=== PATIENT | female | born 1935 | race Two or more races ===

== ENCOUNTER 2021-06-15 09:11 | Inpatient (IN) | payer MEDICARE, OTHER ==
[~2021-06-15] VITALS: Ht 160 cm; Wt 88.6 kg
[2021-06-15] MEDS ORDERED: SODIUM CHLORIDE 0.9% 1,000 ML IVB ONE (10:00)
[2021-06-15] MEDS ORDERED: cefTRIAXone 1GM/50ML D5W 50 ML IV ONE (10:00)
[2021-06-15] MEDS ORDERED: ASPirin 81 mg TAB PO ONE (10:00)
[2021-06-15] MEDS ORDERED: DexAMETHasone SOD PHOS 10MG/1ML VIAL INJ IV ONE (10:00)
[2021-06-15] MEDS ORDERED: AZITHROMYCIN 500MG/ 250ML 250 ML IV ONE (10:00)
[2021-06-15] MEDS ORDERED: SODIUM CHLORIDE 0.9% 1,000 ML IV ONE (10:00)
[2021-06-15 11:18] LABS: Albumin 2.6 g/dL (3.4-5.0); Calcium 8.2 mg/dL (8.5-10.1); Lactic Acid w/Reflex 3.1 mmol/L (0.4-2.0); Magnesium 2.7 mg/dL (1.6-2.6); Potassium 5.1 mmol/L (3.5-5.1)
[2021-06-15 11:19] LABS: BUN/Creatinine Ratio 21.3; Bilirubin, Total 0.7 mg/dL (0.2-1.0); Total Protein 6.1 g/dL (6.4-8.2)
[2021-06-15] MEDS ORDERED: IPRATROPIUM BROM 0.5 MG/2.5ML INH SOL NEB ONE (11:45)
[2021-06-15] MEDS ORDERED: ALBUTEROL SULF 2.5 MG/0.5ML(0.5%) NEB SOLN NEB ONE (11:45)
[2021-06-15] MEDS ORDERED: FUROSEMIDE 40 MG/4 ML VIAL IV ONE (12:00)
[2021-06-15 12:15] LABS: Hematocrit 40.2 % (36.0-46.0); Hemoglobin 12.7 g/dL (12.2-16.2); Mean Corpuscular Hemoglobin 29.3 pg (28.0-32.0); Mean Corpuscular Hgb Conc. 31.6 g/dL (32.0-36.0); Mean Corpuscular Volume 92.8 fL (80.0-100.0); Red Blood Cells 4.34 10^6/uL (4.0-5.20); Red Cell Distribution Width 15.5 % (11.8-14.3); White Blood Cell 6.9 10^3/uL (4.4-10.8)
[2021-06-15 12:26] LABS: Urine Bacteria MANY /hpf (None Seen); Urine Blood TRACE /uL (Negative); Urine Hyaline Cast MANY /lpf (0 - 2); Urine Mucus FEW (None Seen); Urine Specific Gravity 1.022 (1.001-1.035); Urine WBC 201 /hpf (0 - 5)
[2021-06-15 12:27] LABS: Basophils % (manual) 0 (0.0-2.0); Blast Cells 0; Eosinophils % (manual) 0 (0-7); Metamyelocytes % 0; Myelocytes % 0; Promyelocytes % 0; Reactive Lymphocytes 0
[2021-06-15 12:28] LABS: INR 1.01 (0.9-1.15); Partial Thromboplastin Time 28.4 sec (23.6-33.0)
[2021-06-15 12:47] LABS: Band Neutrophils % (manual) 8; Lymphocytes % (manual) 22 (10.0-50.0); Monocytes % (manual) 12 (0-12)
[2021-06-15] MEDS ORDERED: SODIUM BICARBONATE 50ML VIAL 50 ML in SOD CHL 0.45% 1,000 ML IV ONE (13:30)
[2021-06-15] MEDS ORDERED: MORPHINE SULFATE INJECTION 2 MG/ML SYRG IV PRN (13:30)
[2021-06-15] MEDS ORDERED: REMDESIVIR PER PHARMACY 0 ML IV SCH (13:30)
[2021-06-15] MEDS ORDERED: NITROGLYCERIN 0.4 MG SL TAB SL PRN (13:30)
[2021-06-15] MEDS ORDERED: ACETAMINOPHEN 500 MG TAB PO PRN (13:30)
[2021-06-15 13:50] VITALS: BP 135/64
[2021-06-15] MEDS ORDERED: ENOXAPARIN SOD 40 MG/0.4 ML SYRINGE SC SCH (14:00)
[2021-06-15 16:49] LABS: Cholesterol 139 mg/dL (< 200); Triglycerides 151 mg/dL (< 150)
[2021-06-15 16:52] LABS: HDL Cholesterol 37 mg/dL (40-59); LDL Cholesterol 89 mg/dL (< 100)
[2021-06-15] MEDS: BUDESONIDE (INHALATION) 180 MCG IH IN SCH (18:52)
[2021-06-15] MEDS: ALBUTEROL SULF HFA 90MCG INH 200DOSE IN PRN (18:52)
[2021-06-15] MEDS ORDERED: ENOXAPARIN SOD 60 MG/0.6 ML SYRINGE SC SCH (22:00)
[2021-06-16] VITALS (13 sets, daily range): BP systolic 111–172; BP diastolic 41–92
[2021-06-16] MEDS ORDERED: hydrALAZINE HCL 20 MG/ML VL IV ONE (03:30)
[2021-06-16] MEDS: BUDESONIDE (INHALATION) 180 MCG IH IN SCH ×2 (06:26→19:30)
[2021-06-16] MEDS: ALBUTEROL SULF HFA 90MCG INH 200DOSE IN PRN ×2 (06:26→19:30)
[2021-06-16 07:25] LABS: Hemoglobin 13.5 g/dL (12.2-16.2); Mean Corpuscular Hgb Conc. 32.1 g/dL (32.0-36.0); Mean Corpuscular Volume 90.5 fL (80.0-100.0); Red Blood Cells 4.65 10^6/uL (4.0-5.20); Red Cell Distribution Width 14.9 % (11.8-14.3); White Blood Cell 8.4 10^3/uL (4.4-10.8)
[2021-06-16 07:27] LABS: Basophils % (manual) 0 (0.0-2.0); Blast Cells 0; Eosinophils % (manual) 0 (0-7); Metamyelocytes % 0; Promyelocytes % 0; Reactive Lymphocytes 0
[2021-06-16 07:30] LABS: Alanine Aminotransferase 44 U/L (13-56); Albumin 2.4 g/dL (3.4-5.0); Anion Gap 11 (5-15); Aspartate Aminotransferase 114 U/L (15-37); BUN/Creatinine Ratio 36.2; Blood Urea Nitrogen 38 mg/dL (7-18); Calcium 8.2 mg/dL (8.5-10.1); Carbon Dioxide 15 mmol/L (21-32); Chloride 117 mmol/L (98-107); GFR African American 64 mL/min; GFR Non-African American 53 mL/min; Glucose 136 mg/dL (74-106); Potassium 4.5 mmol/L (3.5-5.1); Sodium 143 mmol/L (136-145)
[2021-06-16 07:33] LABS: Alkaline Phosphatase 248 U/L (45-117); Bilirubin, Total 0.5 mg/dL (0.2-1.0); Total Protein 6.2 g/dL (6.4-8.2)
[2021-06-16 07:46] LABS: Band Neutrophils % (manual) 25; Lymphocytes % (manual) 9 (10.0-50.0); Monocytes % (manual) 4 (0-12); Myelocytes % 1
[2021-06-16] MEDS: DexAMETHasone SOD PHOS 10MG/1ML VIAL INJ IV SCH (10:00)
[2021-06-16] MEDS: ASCORBIC ACID 1,000 MG TAB PO SCH (10:00)
[2021-06-16] MEDS: ASPirin 81 mg TAB PO SCH (10:00)
[2021-06-16] MEDS: AZITHROMYCIN 500MG/ 250ML 250 ML IV SCH (10:20)
[2021-06-16] MEDS: ZINC SULFATE 220mg CAP or TAB PO SCH (10:33)
[2021-06-16] MEDS: CHOLECALCIFEROL (VITD3) 2,000 UNIT CAP/TAB PO SCH (10:33)
[2021-06-16] MEDS ORDERED: REMDESIVIR PER PHARMACY 0 ML IV SCH (11:00)
[2021-06-16] MEDS ORDERED: AZIT250T9 PO (12:15)
[2021-06-16] MEDS ORDERED: HYDR-4833 PO (12:15)
[2021-06-16] MEDS ORDERED: RAMI5CAP40 PO (12:15)
[2021-06-16] MEDS ORDERED: OXYB5TAB61 PO (12:15)
[2021-06-16] MEDS ORDERED: LEVO88TA2 PO (12:15)
[2021-06-16] MEDS ORDERED: HYDR12.55 PO (12:15)
[2021-06-16] MEDS ORDERED: DICL1GEL86 EX (12:15)
[2021-06-16] MEDS ORDERED: CEL100T PO (12:15)
[2021-06-16] MEDS ORDERED: REMDESIVIR 200 MG in NS 210ml LOADING DOSE ADULT IV ONE (12:30)
[2021-06-16] MEDS ORDERED: guaiFENesin-DM 100/10mg/5ml SYR PO PRN (17:00)
[2021-06-16] MEDS ORDERED: cefTRIAXone 1GM/50ML D5W 50 ML IV ONE (17:00)
[2021-06-16] MEDS ORDERED: ASCO500C49 PO (19:43)
[2021-06-16] MEDS ORDERED: ACET-1156 PO (19:43)
[2021-06-16] MEDS ORDERED: HYDR-4072 PO (19:43)
[2021-06-16] MEDS ORDERED: ZINC220C8 PO (19:43)
[2021-06-16] MEDS ORDERED: CHOLPOW45 XX (19:43)
[2021-06-16] MEDS: ENOXAPARIN SOD 40 MG/0.4 ML SYRINGE SC SCH (22:27)
[2021-06-16] MEDS: ATORVASTATIN 20 MG TAB PO SCH (22:28)
[2021-06-16] MEDS ORDERED: hydrALAZINE HCL 20 MG/ML VL IV PRN (23:00)
[2021-06-17] VITALS (88 sets, daily range): BP systolic 95–162; BP diastolic 22–102
[2021-06-17 05:04] LABS: Hematocrit 39.3 % (36.0-46.0); Hemoglobin 12.9 g/dL (12.2-16.2); Mean Corpuscular Hemoglobin 28.8 pg (28.0-32.0); Mean Corpuscular Hgb Conc. 32.8 g/dL (32.0-36.0); Mean Corpuscular Volume 87.5 fL (80.0-100.0); Red Blood Cells 4.49 10^6/uL (4.0-5.20); Red Cell Distribution Width 14.9 % (11.8-14.3); White Blood Cell 8.1 10^3/uL (4.4-10.8)
[2021-06-17 05:31] LABS: Albumin 2.5 g/dL (3.4-5.0); Calcium 8.3 mg/dL (8.5-10.1); Potassium 4.2 mmol/L (3.5-5.1)
[2021-06-17 05:33] LABS: BUN/Creatinine Ratio 42.5; Basophils % (manual) 0 (0.0-2.0); Blast Cells 0; Eosinophils % (manual) 0 (0-7); Metamyelocytes % 0; Promyelocytes % 0; Reactive Lymphocytes 0
[2021-06-17 05:38] LABS: Bilirubin, Total 0.7 mg/dL (0.2-1.0); Total Protein 6.1 g/dL (6.4-8.2)
[2021-06-17] MEDS: BUDESONIDE (INHALATION) 180 MCG IH IN SCH ×2 (06:40→10:00)
[2021-06-17 06:50] LABS: Band Neutrophils % (manual) 26; Lymphocytes % (manual) 6 (10.0-50.0); Monocytes % (manual) 10 (0-12); Myelocytes % 5
[2021-06-17] MEDS ORDERED: LORazepam 2MG/ML-1ML VIAL IV ONE (08:15)
[2021-06-17] MEDS: cefTRIAXone 1GM/50ML D5W 50 ML IV SCH (09:11)
[2021-06-17] MEDS: CHOLECALCIFEROL (VITD3) 2,000 UNIT CAP/TAB PO SCH (10:00)
[2021-06-17] MEDS: ASPirin 81 mg TAB PO SCH (10:00)
[2021-06-17] MEDS: DexAMETHasone SOD PHOS 10MG/1ML VIAL INJ IV SCH (10:00)
[2021-06-17] MEDS: ASCORBIC ACID 1,000 MG TAB PO SCH (10:00)
[2021-06-17] MEDS: ZINC SULFATE 220mg CAP or TAB PO SCH (10:00)
[2021-06-17] MEDS: AZITHROMYCIN 500MG/ 250ML 250 ML IV SCH (10:00)
[2021-06-17] MEDS: FAMOTIDINE 20 MG TAB PO SCH (10:00)
[2021-06-17] MEDS ORDERED: ROCURONIUM 10MG/ML 10ML VIAL IV ONE ×2 (11:13→11:15)
[2021-06-17] MEDS ORDERED: ETOMIDATE (2MG/ML) 20ML VIAL IV ONE ×2 (11:13→11:30)
[2021-06-17 11:14] LABS: INR 1.06 (0.9-1.15); Partial Thromboplastin Time 21.2 sec (23.6-33.0)
[2021-06-17] MEDS ORDERED: MIDAZOLAM DRIP 50 mg/50mL 50 ML IV ONE ×2 (11:28→12:34)
[2021-06-17] MEDS ORDERED: PROPOFOL 100 ML IV ONE (11:28)
[2021-06-17] MEDS: fentaNYL Drip 2500mCg/250mlNS 250 ML IV SCH (12:30)
[2021-06-17] MEDS: PROPOFOL 100 ML IV SCH ×2 (13:45→19:47)
[2021-06-17] MEDS: REMDESIVIR 100mg 100 MG in SODIUM CHL 0.9% 230 ML IV SCH (15:00)
[2021-06-17] MEDS: MIDAZOLAM DRIP 50 mg/50mL 50 ML IV SCH ×3 (17:15→23:30)
[2021-06-17] MEDS: NOREPINEPHRINE 8 MG/250ML KIT 250 ML IV SCH (17:49)
[2021-06-17] MEDS: FREE WATER GT SCH ×2 (17:50→22:00)
[2021-06-17] MEDS: ENOXAPARIN SOD 40 MG/0.4 ML SYRINGE SC SCH (23:27)
[2021-06-17] MEDS: ATORVASTATIN 20 MG TAB PO SCH (23:27)
[2021-06-18] VITALS (101 sets, daily range): BP systolic 86–165; BP diastolic 23–44
[2021-06-18] MEDS: FREE WATER GT SCH ×6 (02:00→22:00)
[2021-06-18] MEDS: MIDAZOLAM DRIP 50 mg/50mL 50 ML IV SCH ×3 (03:00→23:33)
[2021-06-18 06:58] LABS: Hematocrit 32.6 % (36.0-46.0); Hemoglobin 11.1 g/dL (12.2-16.2); Mean Corpuscular Hemoglobin 29.9 pg (28.0-32.0); Mean Corpuscular Hgb Conc. 34.1 g/dL (32.0-36.0); Mean Corpuscular Volume 87.6 fL (80.0-100.0); Red Blood Cells 3.73 10^6/uL (4.0-5.20); Red Cell Distribution Width 14.6 % (11.8-14.3); White Blood Cell 4.9 10^3/uL (4.4-10.8)
[2021-06-18 07:13] LABS: Albumin 2.1 g/dL (3.4-5.0); Calcium 7.6 mg/dL (8.5-10.1); Potassium 3.9 mmol/L (3.5-5.1)
[2021-06-18 07:19] LABS: BUN/Creatinine Ratio 48.4; Bilirubin, Total 0.5 mg/dL (0.2-1.0)
[2021-06-18 07:26] LABS: Basophils % (manual) 0 (0.0-2.0); Blast Cells 0; Eosinophils % (manual) 0 (0-7); Metamyelocytes % 0; Myelocytes % 0; Promyelocytes % 0; Reactive Lymphocytes 0
[2021-06-18] MEDS: cefTRIAXone 1GM/50ML D5W 50 ML IV SCH (08:53)
[2021-06-18 09:17] LABS: Band Neutrophils % (manual) 9; Lymphocytes % (manual) 5 (10.0-50.0); Monocytes % (manual) 4 (0-12)
[2021-06-18] MEDS: DexAMETHasone SOD PHOS 10MG/1ML VIAL INJ IV SCH (10:00)
[2021-06-18] MEDS: AZITHROMYCIN 500MG/ 250ML 250 ML IV SCH (10:00)
[2021-06-18] MEDS: ASPirin 81 mg TAB PO SCH (10:00)
[2021-06-18] MEDS: FAMOTIDINE 20 MG TAB PO SCH (10:00)
[2021-06-18] MEDS: ASCORBIC ACID 1,000 MG TAB PO SCH (10:00)
[2021-06-18] MEDS: ZINC SULFATE 220mg CAP or TAB PO SCH (10:00)
[2021-06-18] MEDS: CHOLECALCIFEROL (VITD3) 2,000 UNIT CAP/TAB PO SCH (10:00)
[2021-06-18] MEDS: fentaNYL Drip 2500mCg/250mlNS 250 ML IV SCH (12:30)
[2021-06-18] MEDS ORDERED: FUROSEMIDE 20 MG/2 ML VIAL IV ONE (12:30)
[2021-06-18] MEDS: REMDESIVIR 100mg 100 MG in SODIUM CHL 0.9% 230 ML IV SCH (15:00)
[2021-06-18] MEDS: NOREPINEPHRINE 8 MG/250ML KIT 250 ML IV SCH (16:45)
[2021-06-18] MEDS: PROPOFOL 100 ML IV SCH (19:00)
[2021-06-18] MEDS: Jevity 1.2 Cal/Fiber 1 Liter GT SCH (20:00)
[2021-06-18] MEDS: ENOXAPARIN SOD 40 MG/0.4 ML SYRINGE SC SCH (22:00)
[2021-06-18] MEDS: ATORVASTATIN 20 MG TAB PO SCH (23:02)
[2021-06-19] VITALS (98 sets, daily range): BP systolic 103–152; BP diastolic 24–60
[2021-06-19] MEDS: NOREPINEPHRINE 8 MG/250ML KIT 250 ML IV SCH (01:00)
[2021-06-19] MEDS: FREE WATER GT SCH ×6 (02:19→22:00)
[2021-06-19] MEDS: PROPOFOL 100 ML IV SCH ×3 (04:00→20:00)
[2021-06-19] MEDS: MIDAZOLAM DRIP 50 mg/50mL 50 ML IV SCH ×4 (04:00→22:00)
[2021-06-19 05:10] LABS: Hematocrit 34.6 % (36.0-46.0); Hemoglobin 11.3 g/dL (12.2-16.2); Mean Corpuscular Hemoglobin 28.5 pg (28.0-32.0); Mean Corpuscular Hgb Conc. 32.6 g/dL (32.0-36.0); Mean Corpuscular Volume 87.5 fL (80.0-100.0); Red Blood Cells 3.96 10^6/uL (4.0-5.20); Red Cell Distribution Width 14.9 % (11.8-14.3); White Blood Cell 12.5 10^3/uL (4.4-10.8)
[2021-06-19] MEDS: fentaNYL Drip 2500mCg/250mlNS 250 ML IV SCH (05:15)
[2021-06-19 05:17] LABS: Basophils % (manual) 0 (0.0-2.0); Blast Cells 0; Eosinophils % (manual) 0 (0-7); Metamyelocytes % 0; Myelocytes % 0; Promyelocytes % 0; Reactive Lymphocytes 0
[2021-06-19 05:34] LABS: Albumin 2.1 g/dL (3.4-5.0); BUN/Creatinine Ratio 37.3; Calcium 7.5 mg/dL (8.5-10.1); Magnesium 2.7 mg/dL (1.6-2.6)
[2021-06-19 05:39] LABS: Bilirubin, Total 0.6 mg/dL (0.2-1.0)
[2021-06-19 06:41] LABS: Band Neutrophils % (manual) 12; Lymphocytes % (manual) 2 (10.0-50.0); Monocytes % (manual) 1 (0-12)
[2021-06-19] MEDS: cefTRIAXone 1GM/50ML D5W 50 ML IV SCH (08:32)
[2021-06-19] MEDS ORDERED: SODIUM BICARBONATE 8.4 % INJ 50ML VIAL IV ONE ×2 (08:45)
[2021-06-19] MEDS: DexAMETHasone SOD PHOS 10MG/1ML VIAL INJ IV SCH (11:12)
[2021-06-19] MEDS: PANTOPRAZOLE 40 MG/10 ML VIAL INJ IV SCH (11:13)
[2021-06-19] MEDS: CHOLECALCIFEROL (VITD3) 2,000 UNIT CAP/TAB PO SCH (11:13)
[2021-06-19] MEDS: AZITHROMYCIN 500MG/ 250ML 250 ML IV SCH (11:13)
[2021-06-19] MEDS: ASPirin 81 mg TAB PO SCH (11:14)
[2021-06-19] MEDS: ZINC SULFATE 220mg CAP or TAB PO SCH (11:14)
[2021-06-19] MEDS: ASCORBIC ACID 1,000 MG TAB PO SCH (11:14)
[2021-06-19] MEDS ORDERED: SODIUM CHLORIDE 0.9% 500 ML IV ONE (13:15)
[2021-06-19] MEDS ORDERED: SODIUM CHLORIDE 0.9% 1,000 ML IV SCH (13:15)
[2021-06-19] MEDS: REMDESIVIR 100mg 100 MG in SODIUM CHL 0.9% 230 ML IV SCH (14:51)
[2021-06-19] MEDS ORDERED: FUROSEMIDE 20 MG/2 ML VIAL IV ONE (18:00)
[2021-06-19] MEDS: Jevity 1.2 Cal/Fiber 1 Liter GT SCH (20:00)
[2021-06-19] MEDS: ENOXAPARIN SOD 40 MG/0.4 ML SYRINGE SC SCH (22:00)
[2021-06-19] MEDS: ATORVASTATIN 20 MG TAB PO SCH (22:00)
[2021-06-20] VITALS (100 sets, daily range): BP systolic 89–153; BP diastolic 22–50
[2021-06-20] MEDS: NOREPINEPHRINE 8 MG/250ML KIT 250 ML IV SCH (01:00)
[2021-06-20] MEDS: MIDAZOLAM DRIP 50 mg/50mL 50 ML IV SCH ×3 (01:33→21:53)
[2021-06-20] MEDS: FREE WATER GT SCH ×6 (02:00→21:51)
[2021-06-20 06:42] LABS: Hematocrit 33.2 % (36.0-46.0); Hemoglobin 11.1 g/dL (12.2-16.2); Mean Corpuscular Hemoglobin 29.3 pg (28.0-32.0); Mean Corpuscular Hgb Conc. 33.3 g/dL (32.0-36.0); Mean Corpuscular Volume 87.8 fL (80.0-100.0); Red Blood Cells 3.78 10^6/uL (4.0-5.20); Red Cell Distribution Width 15.1 % (11.8-14.3); White Blood Cell 13.3 10^3/uL (4.4-10.8)
[2021-06-20 06:54] LABS: Band Neutrophils % (manual) 0; Basophils % (manual) 0 (0.0-2.0); Blast Cells 0; Eosinophils % (manual) 0 (0-7); Metamyelocytes % 0; Myelocytes % 0; Promyelocytes % 0; Reactive Lymphocytes 0
[2021-06-20 07:08] LABS: BUN/Creatinine Ratio 34.8; Calcium 6.9 mg/dL (8.5-10.1)
[2021-06-20 07:11] LABS: Bilirubin, Total 0.3 mg/dL (0.2-1.0); Total Protein 4.9 g/dL (6.4-8.2)
[2021-06-20] MEDS: PROPOFOL 100 ML IV SCH ×2 (08:02→21:52)
[2021-06-20 09:30] LABS: Lymphocytes % (manual) 4 (10.0-50.0); Monocytes % (manual) 13 (0-12)
[2021-06-20] MEDS: cefTRIAXone 1GM/50ML D5W 50 ML IV SCH (09:38)
[2021-06-20] MEDS: DexAMETHasone SOD PHOS 10MG/1ML VIAL INJ IV SCH (10:09)
[2021-06-20] MEDS: PANTOPRAZOLE 40 MG/10 ML VIAL INJ IV SCH (10:09)
[2021-06-20] MEDS: ZINC SULFATE 220mg CAP or TAB PO SCH (10:10)
[2021-06-20] MEDS: AZITHROMYCIN 500MG/ 250ML 250 ML IV SCH (10:10)
[2021-06-20] MEDS: CHOLECALCIFEROL (VITD3) 2,000 UNIT CAP/TAB PO SCH (10:10)
[2021-06-20] MEDS: ASCORBIC ACID 1,000 MG TAB PO SCH (10:10)
[2021-06-20] MEDS: ASPirin 81 mg TAB PO SCH (10:11)
[2021-06-20] MEDS: D5W 5% 1,000 ML IV ONE ×2 (12:30→14:32)
[2021-06-20] MEDS: fentaNYL Drip 2500mCg/250mlNS 250 ML IV SCH ×2 (12:30→21:52)
[2021-06-20] MEDS: InsuLIN REG 1unit/0.01ml Soln (100units/ml) SC SCH ×2 (14:00→18:30)
[2021-06-20] MEDS: REMDESIVIR 100mg 100 MG in SODIUM CHL 0.9% 230 ML IV SCH (16:30)
[2021-06-20] MEDS: ACCU-CHEK COMFORT CURVE STRIP VI SCH (18:14)
[2021-06-20] MEDS: ENOXAPARIN SOD 40 MG/0.4 ML SYRINGE SC SCH (21:51)
[2021-06-20] MEDS: ATORVASTATIN 20 MG TAB PO SCH (21:51)
[2021-06-21] VITALS (98 sets, daily range): BP systolic 87–140; BP diastolic 17–52
[2021-06-21] MEDS: ACCU-CHEK COMFORT CURVE STRIP VI SCH ×4 (00:04→18:07)
[2021-06-21] MEDS: InsuLIN REG 1unit/0.01ml Soln (100units/ml) SC SCH ×4 (00:05→18:07)
[2021-06-21] MEDS: FREE WATER GT SCH ×6 (01:56→21:40)
[2021-06-21 05:22] LABS: Hematocrit 35.8 % (36.0-46.0); Hemoglobin 11.7 g/dL (12.2-16.2); Mean Corpuscular Hemoglobin 28.7 pg (28.0-32.0); Mean Corpuscular Hgb Conc. 32.7 g/dL (32.0-36.0); Mean Corpuscular Volume 87.6 fL (80.0-100.0); Red Blood Cells 4.09 10^6/uL (4.0-5.20); Red Cell Distribution Width 15.3 % (11.8-14.3); White Blood Cell 18.8 10^3/uL (4.4-10.8)
[2021-06-21 05:44] LABS: Potassium 4.1 mmol/L (3.5-5.1)
[2021-06-21 05:47] LABS: Basophils % (manual) 0 (0.0-2.0); Blast Cells 0; Eosinophils % (manual) 0 (0-7); Myelocytes % 0; Promyelocytes % 0; Reactive Lymphocytes 0
[2021-06-21 05:53] LABS: Albumin 2.1 g/dL (3.4-5.0); BUN/Creatinine Ratio 40.5; Bilirubin, Total 0.3 mg/dL (0.2-1.0); Calcium 6.9 mg/dL (8.5-10.1); Total Protein 5.2 g/dL (6.4-8.2)
[2021-06-21] MEDS: NOREPINEPHRINE 8 MG/250ML KIT 250 ML IV SCH (06:52)
[2021-06-21 09:40] LABS: Band Neutrophils % (manual) 6; Lymphocytes % (manual) 6 (10.0-50.0); Metamyelocytes % 1; Monocytes % (manual) 6 (0-12)
[2021-06-21] MEDS: ASCORBIC ACID 1,000 MG TAB PO SCH (10:31)
[2021-06-21] MEDS: cefTRIAXone 1GM/50ML D5W 50 ML IV SCH (10:31)
[2021-06-21] MEDS: CHOLECALCIFEROL (VITD3) 2,000 UNIT CAP/TAB PO SCH (10:31)
[2021-06-21] MEDS: PANTOPRAZOLE 40 MG/10 ML VIAL INJ IV SCH (10:31)
[2021-06-21] MEDS: ZINC SULFATE 220mg CAP or TAB PO SCH (10:32)
[2021-06-21] MEDS: DexAMETHasone SOD PHOS 10MG/1ML VIAL INJ IV SCH (10:32)
[2021-06-21] MEDS: MIDAZOLAM DRIP 50 mg/50mL 50 ML IV SCH ×2 (10:32→15:10)
[2021-06-21] MEDS: ASPirin 81 mg TAB PO SCH (10:32)
[2021-06-21] MEDS: fentaNYL Drip 2500mCg/250mlNS 250 ML IV SCH (18:07)
[2021-06-21] MEDS: ATORVASTATIN 20 MG TAB PO SCH (21:40)
[2021-06-21] MEDS: INSULIN LANTUS (GLARGINE) 1 /0.01ml (100units/ml) SC SCH (21:40)
[2021-06-21] MEDS: ENOXAPARIN SOD 40 MG/0.4 ML SYRINGE SC SCH (21:40)
[2021-06-22] VITALS (101 sets, daily range): BP systolic 77–151; BP diastolic 31–56
[2021-06-22] MEDS: ACCU-CHEK COMFORT CURVE STRIP VI SCH ×5 (00:31→23:56)
[2021-06-22] MEDS: InsuLIN REG 1unit/0.01ml Soln (100units/ml) SC SCH ×5 (00:31→23:55)
[2021-06-22] MEDS: FREE WATER GT SCH ×6 (02:46→21:39)
[2021-06-22 06:10] LABS: Hemoglobin 10.7 g/dL (12.2-16.2); Mean Corpuscular Hemoglobin 29.3 pg (28.0-32.0); Mean Corpuscular Hgb Conc. 33.3 g/dL (32.0-36.0); Mean Corpuscular Volume 88.1 fL (80.0-100.0); Red Blood Cells 3.63 10^6/uL (4.0-5.20); Red Cell Distribution Width 15.4 % (11.8-14.3); White Blood Cell 15.5 10^3/uL (4.4-10.8)
[2021-06-22 06:24] LABS: Basophils % (manual) 0 (0.0-2.0); Blast Cells 0; Eosinophils % (manual) 0 (0-7); Metamyelocytes % 0; Myelocytes % 0; Promyelocytes % 0; Reactive Lymphocytes 0
[2021-06-22 06:27] LABS: Potassium 4.5 mmol/L (3.5-5.1)
[2021-06-22 06:36] LABS: Albumin 1.9 g/dL (3.4-5.0)
[2021-06-22 06:39] LABS: Bilirubin, Total 0.3 mg/dL (0.2-1.0); Total Protein 4.7 g/dL (6.4-8.2)
[2021-06-22] MEDS: NOREPINEPHRINE 8 MG/250ML KIT 250 ML IV SCH ×2 (06:45→18:45)
[2021-06-22] MEDS: cefTRIAXone 1GM/50ML D5W 50 ML IV SCH (08:27)
[2021-06-22 09:17] LABS: Band Neutrophils % (manual) 3; Lymphocytes % (manual) 1 (10.0-50.0); Monocytes % (manual) 10 (0-12)
[2021-06-22] MEDS: ASPirin 81 mg TAB PO SCH (10:00)
[2021-06-22] MEDS ORDERED: FUROSEMIDE 20 MG/2 ML VIAL IV ONE (10:00)
[2021-06-22] MEDS: MIDAZOLAM DRIP 50 mg/50mL 50 ML IV SCH (10:00)
[2021-06-22] MEDS: PANTOPRAZOLE 40 MG/10 ML VIAL INJ IV SCH (11:06)
[2021-06-22] MEDS: DexAMETHasone SOD PHOS 10MG/1ML VIAL INJ IV SCH (11:06)
[2021-06-22] MEDS: ZINC SULFATE 220mg CAP or TAB PO SCH (11:07)
[2021-06-22] MEDS: CHOLECALCIFEROL (VITD3) 2,000 UNIT CAP/TAB PO SCH (11:07)
[2021-06-22] MEDS: ASCORBIC ACID 1,000 MG TAB PO SCH (11:07)
[2021-06-22] MEDS: PROPOFOL 100 ML IV SCH (13:45)
[2021-06-22] MEDS ORDERED: ALBUTEROL SULF 2.5 MG/0.5ML(0.5%) NEB SOLN ONE (18:39)
[2021-06-22] MEDS ORDERED: BUDESONIDE (INHALATION) 0.5 MG/2 ML NEB ONE (18:39)
[2021-06-22] MEDS: fentaNYL Drip 2500mCg/250mlNS 250 ML IV SCH (18:46)
[2021-06-22] MEDS: ATORVASTATIN 20 MG TAB PO SCH (21:40)
[2021-06-22] MEDS: ENOXAPARIN SOD 40 MG/0.4 ML SYRINGE SC SCH (21:40)
[2021-06-22] MEDS: INSULIN LANTUS (GLARGINE) 1 /0.01ml (100units/ml) SC SCH (21:43)
[2021-06-23] VITALS (105 sets, daily range): BP systolic 98–150; BP diastolic 34–55
[2021-06-23] MEDS: FREE WATER GT SCH ×2 (03:06→05:43)
[2021-06-23] MEDS: ACCU-CHEK COMFORT CURVE STRIP VI SCH ×3 (05:43→18:12)
[2021-06-23] MEDS: InsuLIN REG 1unit/0.01ml Soln (100units/ml) SC SCH ×3 (05:44→18:15)
[2021-06-23 06:01] LABS: Hematocrit 33.8 % (36.0-46.0); Hemoglobin 10.8 g/dL (12.2-16.2); Mean Corpuscular Hemoglobin 28.6 pg (28.0-32.0); Mean Corpuscular Hgb Conc. 31.9 g/dL (32.0-36.0); Mean Corpuscular Volume 89.6 fL (80.0-100.0); Red Blood Cells 3.77 10^6/uL (4.0-5.20); Red Cell Distribution Width 15.6 % (11.8-14.3); White Blood Cell 14.8 10^3/uL (4.4-10.8)
[2021-06-23 06:17] LABS: Calcium 7.6 mg/dL (8.5-10.1); Potassium 5.4 mmol/L (3.5-5.1)
[2021-06-23 06:20] LABS: BUN/Creatinine Ratio 49.3
[2021-06-23 06:23] LABS: Bilirubin, Total 0.3 mg/dL (0.2-1.0); Total Protein 5.2 g/dL (6.4-8.2)
[2021-06-23 06:51] LABS: Basophils % (manual) 0 (0.0-2.0); Blast Cells 0; Eosinophils % (manual) 0 (0-7); Metamyelocytes % 0; Myelocytes % 0; Promyelocytes % 0; Reactive Lymphocytes 0
[2021-06-23 07:56] LABS: Band Neutrophils % (manual) 1; Lymphocytes % (manual) 10 (10.0-50.0); Monocytes % (manual) 5 (0-12)
[2021-06-23] MEDS ORDERED: D5W 5% 1,000 ML IV ONE (09:00)
[2021-06-23] MEDS ORDERED: FUROSEMIDE 20 MG/2 ML VIAL IV ONE (09:30)
[2021-06-23] MEDS ORDERED: SODIUM BICARBONATE 8.4% INJ 50ML SYRINGE IV ONE ×2 (09:30→17:00)
[2021-06-23] MEDS ORDERED: InsuLIN REG 1unit/0.01ml Soln (100units/ml) IV ONE ×2 (09:30→17:00)
[2021-06-23] MEDS ORDERED: DEXTROSE (50%) 50ML SYRG IV ONE ×2 (09:30→17:00)
[2021-06-23] MEDS: PANTOPRAZOLE 40 MG/10 ML VIAL INJ IV SCH (09:47)
[2021-06-23] MEDS: cefTRIAXone 1GM/50ML D5W 50 ML IV SCH (09:47)
[2021-06-23] MEDS: MIDAZOLAM DRIP 50 mg/50mL 50 ML IV SCH ×4 (09:48→22:01)
[2021-06-23] MEDS: DexAMETHasone SOD PHOS 10MG/1ML VIAL INJ IV SCH (09:48)
[2021-06-23] MEDS: ZINC SULFATE 220mg CAP or TAB PO SCH (09:49)
[2021-06-23] MEDS: CHOLECALCIFEROL (VITD3) 2,000 UNIT CAP/TAB PO SCH (09:49)
[2021-06-23] MEDS: ASCORBIC ACID 1,000 MG TAB PO SCH (09:49)
[2021-06-23] MEDS: ASPirin 81 mg TAB PO SCH (09:49)
[2021-06-23] MEDS: INSULIN LANTUS (GLARGINE) 1 /0.01ml (100units/ml) SC SCH ×2 (12:06→22:30)
[2021-06-23] MEDS: PROPOFOL 100 ML IV SCH (13:42)
[2021-06-23] MEDS: fentaNYL Drip 2500mCg/250mlNS 250 ML IV SCH (13:46)
[2021-06-23 15:08] LABS: BUN/Creatinine Ratio 50.7; Calcium 7.4 mg/dL (8.5-10.1); Potassium 5.5 mmol/L (3.5-5.1)
[2021-06-23] MEDS ORDERED: SODIUM ZIRCONIUM CYCL 10 GM PAK GT ONE (16:00)
[2021-06-23 16:24] LABS: BUN/Creatinine Ratio 55.4; Calcium 7.5 mg/dL (8.5-10.1)
[2021-06-23 16:48] LABS: Potassium 6.2 mmol/L (3.5-5.1)
[2021-06-23] MEDS ORDERED: ALBUTEROL SULF 2.5 MG/0.5ML(0.5%) NEB SOLN NEB ONE (17:00)
[2021-06-23] MEDS ORDERED: FUROSEMIDE 40 MG/4 ML VIAL IV ONE (17:00)
[2021-06-23] MEDS ORDERED: SODIUM CHLORIDE 0.9% 500 ML IV ONE (17:00)
[2021-06-23] MEDS: ATORVASTATIN 20 MG TAB PO SCH (22:07)
[2021-06-23] MEDS: SODIUM ZIRCONIUM CYCL 10 GM PAK PO SCH (22:08)
[2021-06-23] MEDS: ENOXAPARIN SOD 40 MG/0.4 ML SYRINGE SC SCH (22:08)
[2021-06-24] VITALS (94 sets, daily range): BP systolic 93–136; BP diastolic 26–58
[2021-06-24] MEDS: ACCU-CHEK COMFORT CURVE STRIP VI SCH ×4 (00:20→19:44)
[2021-06-24] MEDS: InsuLIN REG 1unit/0.01ml Soln (100units/ml) SC SCH ×4 (00:21→19:45)
[2021-06-24] MEDS: SODIUM ZIRCONIUM CYCL 10 GM PAK PO SCH (06:05)
[2021-06-24] MEDS: NOREPINEPHRINE 8 MG/250ML KIT 250 ML IV SCH (06:45)
[2021-06-24 09:52] LABS: Hemoglobin 9.6 g/dL (12.2-16.2); Mean Corpuscular Hemoglobin 28.8 pg (28.0-32.0); Mean Corpuscular Hgb Conc. 32.2 g/dL (32.0-36.0); Mean Corpuscular Volume 89.3 fL (80.0-100.0); Red Blood Cells 3.35 10^6/uL (4.0-5.20); Red Cell Distribution Width 15.8 % (11.8-14.3); White Blood Cell 12.7 10^3/uL (4.4-10.8)
[2021-06-24 09:55] LABS: Basophils % (manual) 0 (0.0-2.0); Blast Cells 0; Eosinophils % (manual) 0 (0-7); Metamyelocytes % 0; Myelocytes % 0; Promyelocytes % 0; Reactive Lymphocytes 0
[2021-06-24] MEDS ORDERED: FUROSEMIDE 20 MG/2 ML VIAL IV ONE (10:00)
[2021-06-24 10:10] LABS: BUN/Creatinine Ratio 58.3; Calcium 7.5 mg/dL (8.5-10.1); Potassium 4.7 mmol/L (3.5-5.1)
[2021-06-24] MEDS: ZINC SULFATE 220mg CAP or TAB PO SCH (11:37)
[2021-06-24] MEDS: DexAMETHasone SOD PHOS 10MG/1ML VIAL INJ IV SCH (11:37)
[2021-06-24] MEDS: ASPirin 81 mg TAB PO SCH (11:37)
[2021-06-24] MEDS: CHOLECALCIFEROL (VITD3) 2,000 UNIT CAP/TAB PO SCH (11:38)
[2021-06-24] MEDS: ASCORBIC ACID 1,000 MG TAB PO SCH (11:38)
[2021-06-24] MEDS: PANTOPRAZOLE 40 MG/10 ML VIAL INJ IV SCH (11:47)
[2021-06-24 12:35] LABS: Band Neutrophils % (manual) 3; Lymphocytes % (manual) 5 (10.0-50.0); Monocytes % (manual) 7 (0-12)
[2021-06-24] MEDS: PROPOFOL 100 ML IV SCH (13:45)
[2021-06-24] MEDS: INSULIN LANTUS (GLARGINE) 1 /0.01ml (100units/ml) SC SCH ×2 (13:54→22:00)
[2021-06-24] MEDS: MIDAZOLAM DRIP 50 mg/50mL 50 ML IV SCH ×2 (17:29→20:36)
[2021-06-24] MEDS: ENOXAPARIN SOD 40 MG/0.4 ML SYRINGE SC SCH (20:35)
[2021-06-24] MEDS: ATORVASTATIN 20 MG TAB PO SCH (20:35)
[2021-06-24] MEDS: fentaNYL Drip 2500mCg/250mlNS 250 ML IV SCH (20:36)
[2021-06-25] VITALS (100 sets, daily range): BP systolic 90–129; BP diastolic 35–56
[2021-06-25] MEDS: InsuLIN REG 1unit/0.01ml Soln (100units/ml) SC SCH ×4 (00:59→18:00)
[2021-06-25] MEDS: ACCU-CHEK COMFORT CURVE STRIP VI SCH ×4 (01:00→19:24)
[2021-06-25] MEDS: Jevity 1.2 Cal/Fiber 1 Liter GT SCH (03:53)
[2021-06-25] MEDS: MIDAZOLAM DRIP 50 mg/50mL 50 ML IV SCH ×5 (03:54→22:08)
[2021-06-25 05:39] LABS: Red Blood Cells 3.12 10^6/uL (4.0-5.20); Red Cell Distribution Width 15.5 % (11.8-14.3)
[2021-06-25 05:42] LABS: Hematocrit 27.6 % (36.0-46.0); Hemoglobin 9.2 g/dL (12.2-16.2); Mean Corpuscular Hemoglobin 29.5 pg (28.0-32.0); Mean Corpuscular Hgb Conc. 33.4 g/dL (32.0-36.0); Mean Corpuscular Volume 88.6 fL (80.0-100.0); White Blood Cell 7.7 10^3/uL (4.4-10.8)
[2021-06-25 06:04] LABS: Band Neutrophils % (manual) 0; Basophils % (manual) 0 (0.0-2.0); Blast Cells 0; Eosinophils % (manual) 0 (0-7); Promyelocytes % 0; Reactive Lymphocytes 0
[2021-06-25 06:05] LABS: Calcium 7.6 mg/dL (8.5-10.1); Potassium 4.8 mmol/L (3.5-5.1)
[2021-06-25 06:07] LABS: BUN/Creatinine Ratio 76.1
[2021-06-25] MEDS: NOREPINEPHRINE 8 MG/250ML KIT 250 ML IV SCH ×2 (06:45→23:39)
[2021-06-25] MEDS: PANTOPRAZOLE 40 MG/10 ML VIAL INJ IV SCH (09:14)
[2021-06-25] MEDS: ASPirin 81 mg TAB PO SCH (09:14)
[2021-06-25] MEDS: ASCORBIC ACID 1,000 MG TAB PO SCH (09:14)
[2021-06-25] MEDS: ZINC SULFATE 220mg CAP or TAB PO SCH (09:14)
[2021-06-25] MEDS: CHOLECALCIFEROL (VITD3) 2,000 UNIT CAP/TAB PO SCH (09:15)
[2021-06-25 11:31] LABS: Lymphocytes % (manual) 1 (10.0-50.0); Metamyelocytes % 1; Monocytes % (manual) 11 (0-12); Myelocytes % 1
[2021-06-25] MEDS: INSULIN LANTUS (GLARGINE) 1 /0.01ml (100units/ml) SC SCH ×2 (11:34→22:00)
[2021-06-25] MEDS ORDERED: FUROSEMIDE 20 MG/2 ML VIAL IV ONE (13:30)
[2021-06-25] MEDS: PROPOFOL 100 ML IV SCH (13:45)
[2021-06-25] MEDS: fentaNYL Drip 2500mCg/250mlNS 250 ML IV SCH (14:27)
[2021-06-25] MEDS: ENOXAPARIN SOD 40 MG/0.4 ML SYRINGE SC SCH (22:00)
[2021-06-25] MEDS: ATORVASTATIN 20 MG TAB PO SCH (22:07)
[2021-06-26] VITALS (98 sets, daily range): BP systolic 94–149; BP diastolic 29–65
[2021-06-26] MEDS: ACCU-CHEK COMFORT CURVE STRIP VI SCH ×5 (01:20→23:49)
[2021-06-26] MEDS: MIDAZOLAM DRIP 50 mg/50mL 50 ML IV SCH ×5 (01:21→21:00)
[2021-06-26] MEDS: fentaNYL Drip 2500mCg/250mlNS 250 ML IV SCH ×2 (01:39→13:18)
[2021-06-26 05:17] LABS: Hematocrit 28.1 % (36.0-46.0); Hemoglobin 9.2 g/dL (12.2-16.2); Mean Corpuscular Hemoglobin 29.2 pg (28.0-32.0); Mean Corpuscular Hgb Conc. 32.7 g/dL (32.0-36.0); Mean Corpuscular Volume 89.2 fL (80.0-100.0); Red Blood Cells 3.15 10^6/uL (4.0-5.20); Red Cell Distribution Width 15.6 % (11.8-14.3); White Blood Cell 9.4 10^3/uL (4.4-10.8)
[2021-06-26 05:32] LABS: Calcium 7.8 mg/dL (8.5-10.1); Potassium 4.6 mmol/L (3.5-5.1)
[2021-06-26 05:35] LABS: BUN/Creatinine Ratio 79.8
[2021-06-26 05:55] LABS: Basophils % (manual) 0 (0.0-2.0); Blast Cells 0; Eosinophils % (manual) 0 (0-7); Lymphocytes % (manual) 0 (10.0-50.0); Metamyelocytes % 0; Promyelocytes % 0; Reactive Lymphocytes 0
[2021-06-26] MEDS: InsuLIN REG 1unit/0.01ml Soln (100units/ml) SC SCH ×5 (06:00→23:48)
[2021-06-26] MEDS ORDERED: Jevity 1.2 Cal/Fiber 1 Liter GT SCH (07:45)
[2021-06-26 08:23] LABS: Band Neutrophils % (manual) 1; Monocytes % (manual) 3 (0-12); Myelocytes % 1
[2021-06-26] MEDS: PROPOFOL 100 ML IV SCH (13:45)
[2021-06-26] MEDS: ASPirin 81 mg TAB PO SCH (15:01)
[2021-06-26] MEDS: PANTOPRAZOLE 40 MG/10 ML VIAL INJ IV SCH (15:01)
[2021-06-26] MEDS: ZINC SULFATE 220mg CAP or TAB PO SCH (15:02)
[2021-06-26] MEDS: ASCORBIC ACID 1,000 MG TAB PO SCH (15:02)
[2021-06-26] MEDS: CHOLECALCIFEROL (VITD3) 2,000 UNIT CAP/TAB PO SCH (15:03)
[2021-06-26] MEDS: INSULIN LANTUS (GLARGINE) 1 /0.01ml (100units/ml) SC SCH ×2 (15:03→22:00)
[2021-06-26] MEDS ORDERED: DexAMETHasone SOD PHOS 10MG/1ML VIAL INJ IV ONE (18:24)
[2021-06-26] MEDS ORDERED: FUROSEMIDE 40 MG/4 ML VIAL IV ONE (18:30)
[2021-06-26] MEDS: ENOXAPARIN SOD 40 MG/0.4 ML SYRINGE SC SCH (22:00)
[2021-06-26] MEDS: ATORVASTATIN 20 MG TAB PO SCH (22:00)
[2021-06-27] VITALS (103 sets, daily range): BP systolic 69–178; BP diastolic 26–69
[2021-06-27] MEDS: fentaNYL Drip 2500mCg/250mlNS 250 ML IV SCH ×2 (01:00→11:50)
[2021-06-27] MEDS: MIDAZOLAM DRIP 50 mg/50mL 50 ML IV SCH ×5 (02:00→22:00)
[2021-06-27 05:45] LABS: White Blood Cell 7.9 10^3/uL (4.4-10.8)
[2021-06-27 05:48] LABS: Hematocrit 28.8 % (36.0-46.0); Hemoglobin 9.7 g/dL (12.2-16.2); Mean Corpuscular Hemoglobin 29.7 pg (28.0-32.0); Mean Corpuscular Hgb Conc. 33.7 g/dL (32.0-36.0); Mean Corpuscular Volume 88.1 fL (80.0-100.0); Red Blood Cells 3.27 10^6/uL (4.0-5.20); Red Cell Distribution Width 15.1 % (11.8-14.3)
[2021-06-27 05:59] LABS: Basophils % (manual) 0 (0.0-2.0); Blast Cells 0; Eosinophils % (manual) 0 (0-7); Metamyelocytes % 0; Promyelocytes % 0; Reactive Lymphocytes 0
[2021-06-27 06:00] LABS: Calcium 8.5 mg/dL (8.5-10.1)
[2021-06-27] MEDS: ACCU-CHEK COMFORT CURVE STRIP VI SCH ×3 (06:00→18:19)
[2021-06-27] MEDS: InsuLIN REG 1unit/0.01ml Soln (100units/ml) SC SCH ×3 (06:00→18:22)
[2021-06-27] MEDS: NOREPINEPHRINE 8 MG/250ML KIT 250 ML IV SCH (06:45)
[2021-06-27 06:47] LABS: Band Neutrophils % (manual) 20; Lymphocytes % (manual) 4 (10.0-50.0); Monocytes % (manual) 4 (0-12); Myelocytes % 1
[2021-06-27] MEDS: PANTOPRAZOLE 40 MG/10 ML VIAL INJ IV SCH (10:12)
[2021-06-27] MEDS ORDERED: PIPERACILLIN-TAZOB 2.25GM 50 ML IV ONE (10:15)
[2021-06-27] MEDS: DexAMETHasone SOD PHOS 10MG/1ML VIAL INJ IV SCH (10:16)
[2021-06-27] MEDS: ZINC SULFATE 220mg CAP or TAB PO SCH (10:16)
[2021-06-27] MEDS: ASCORBIC ACID 1,000 MG TAB PO SCH (10:16)
[2021-06-27] MEDS: CHOLECALCIFEROL (VITD3) 2,000 UNIT CAP/TAB PO SCH (10:16)
[2021-06-27] MEDS: INSULIN LANTUS (GLARGINE) 1 /0.01ml (100units/ml) SC SCH ×2 (10:20→22:00)
[2021-06-27] MEDS: FUROSEMIDE 40 MG/4 ML VIAL IV SCH (10:21)
[2021-06-27] MEDS ORDERED: MEROPENEM 1GM IVPB 100 ML IV ONE (11:15)
[2021-06-27] MEDS: PROPOFOL 100 ML IV SCH ×3 (13:45→23:00)
[2021-06-27] MEDS ORDERED: PIPERACILLIN-TAZOB 2.25GM 50 ML IV SCH (18:00)
[2021-06-27] MEDS: MEROPENEM 1GM IVPB 100 ML IV SCH (22:00)
[2021-06-27] MEDS: ATORVASTATIN 20 MG TAB PO SCH (22:00)
[2021-06-28] VITALS (102 sets, daily range): BP systolic 93–179; BP diastolic 17–46
[2021-06-28] MEDS: ACCU-CHEK COMFORT CURVE STRIP VI SCH ×4 (00:19→18:00)
[2021-06-28] MEDS: fentaNYL Drip 2500mCg/250mlNS 250 ML IV SCH ×3 (01:20→23:00)
[2021-06-28] MEDS: MIDAZOLAM DRIP 50 mg/50mL 50 ML IV SCH ×5 (04:00→22:00)
[2021-06-28] MEDS: InsuLIN REG 1unit/0.01ml Soln (100units/ml) SC SCH ×4 (06:00→18:00)
[2021-06-28] MEDS: NOREPINEPHRINE 8 MG/250ML KIT 250 ML IV SCH ×2 (06:45→17:21)
[2021-06-28] MEDS: PROPOFOL 100 ML IV SCH ×3 (09:00→20:00)
[2021-06-28] MEDS: PANTOPRAZOLE 40 MG/10 ML VIAL INJ IV SCH (09:20)
[2021-06-28] MEDS: DexAMETHasone SOD PHOS 10MG/1ML VIAL INJ IV SCH (09:20)
[2021-06-28] MEDS: MEROPENEM 1GM IVPB 100 ML IV SCH ×2 (09:21→22:03)
[2021-06-28] MEDS: CHOLECALCIFEROL (VITD3) 2,000 UNIT CAP/TAB PO SCH (09:21)
[2021-06-28] MEDS: ZINC SULFATE 220mg CAP or TAB PO SCH (09:21)
[2021-06-28] MEDS: ASCORBIC ACID 1,000 MG TAB PO SCH (09:21)
[2021-06-28] MEDS: FUROSEMIDE 40 MG/4 ML VIAL IV SCH (09:22)
[2021-06-28] MEDS: INSULIN LANTUS (GLARGINE) 1 /0.01ml (100units/ml) SC SCH ×2 (09:26→22:04)
[2021-06-28] MEDS: ATORVASTATIN 20 MG TAB PO SCH (22:03)
[2021-06-28 23:11] LABS: BUN/Creatinine Ratio 54.4; Calcium 7.7 mg/dL (8.5-10.1)
[2021-06-28 23:13] LABS: Potassium 6.5 mmol/L (3.5-5.1)
[2021-06-28] MEDS ORDERED: SODIUM BICARBONATE 8.4 % INJ 50ML VIAL IV ONE (23:30)
[2021-06-28] MEDS ORDERED: DEXTROSE (50%) 50ML SYRG IV ONE (23:30)
[2021-06-28] MEDS ORDERED: SODIUM ZIRCONIUM CYCL 10 GM PAK PO ONE (23:30)
[2021-06-28] MEDS ORDERED: ALBUTEROL SULF 2.5 MG/0.5ML(0.5%) NEB SOLN NEB ONE (23:30)
[2021-06-28] MEDS ORDERED: CALCIUM GLUC 1,000mg/50ml-NS 50 ML IV ONE (23:30)
[2021-06-28] MEDS ORDERED: InsuLIN REG 1unit/0.01ml Soln (100units/ml) IV ONE (23:30)
[2021-06-28] MEDS ORDERED: SODIUM CHLORIDE 0.9% 500 ML IV ONE (23:30)
[2021-06-29] VITALS (104 sets, daily range): BP systolic 84–164; BP diastolic 18–90
[2021-06-29] MEDS: PROPOFOL 100 ML IV SCH ×3 (01:00→12:00)
[2021-06-29 01:19] LABS: Hematocrit 28.8 % (36.0-46.0)
[2021-06-29 01:23] LABS: Hemoglobin 9.3 g/dL (12.2-16.2); Mean Corpuscular Hemoglobin 29.4 pg (28.0-32.0); Mean Corpuscular Hgb Conc. 32.2 g/dL (32.0-36.0); Mean Corpuscular Volume 91.4 fL (80.0-100.0); Red Blood Cells 3.16 10^6/uL (4.0-5.20); Red Cell Distribution Width 15.8 % (11.8-14.3); White Blood Cell 13.9 10^3/uL (4.4-10.8)
[2021-06-29 01:47] LABS: Basophils % (manual) 0 (0.0-2.0); Blast Cells 0; Eosinophils % (manual) 0 (0-7); Metamyelocytes % 0; Promyelocytes % 0; Reactive Lymphocytes 0
[2021-06-29 03:23] LABS: Monocytes % (manual) 4 (0-12); Myelocytes % 3
[2021-06-29 03:40] LABS: Band Neutrophils % (manual) 17; Lymphocytes % (manual) 8 (10.0-50.0)
[2021-06-29] MEDS: InsuLIN REG 1unit/0.01ml Soln (100units/ml) SC SCH ×4 (05:55→17:47)
[2021-06-29] MEDS: ACCU-CHEK COMFORT CURVE STRIP VI SCH ×4 (05:56→17:46)
[2021-06-29] MEDS: MIDAZOLAM DRIP 50 mg/50mL 50 ML IV SCH ×5 (05:56→18:33)
[2021-06-29 06:01] LABS: Anion Gap 7 (5-15); BUN/Creatinine Ratio 55.1; Blood Urea Nitrogen 75 mg/dL (7-18); Calcium 8.1 mg/dL (8.5-10.1); Carbon Dioxide 27 mmol/L (21-32); Chloride 111 mmol/L (98-107); GFR African American 48 mL/min; GFR Non-African American 39 mL/min; Glucose 188 mg/dL (74-106); Sodium 145 mmol/L (136-145)
[2021-06-29] MEDS: NOREPINEPHRINE 8 MG/250ML KIT 250 ML IV SCH ×2 (06:45→15:33)
[2021-06-29 06:55] LABS: Hematocrit 30.8 % (36.0-46.0); Hemoglobin 9.7 g/dL (12.2-16.2); Mean Corpuscular Hemoglobin 28.5 pg (28.0-32.0); Mean Corpuscular Hgb Conc. 31.6 g/dL (32.0-36.0); Mean Corpuscular Volume 90.2 fL (80.0-100.0); Red Blood Cells 3.41 10^6/uL (4.0-5.20); Red Cell Distribution Width 15.6 % (11.8-14.3); White Blood Cell 14.6 10^3/uL (4.4-10.8)
[2021-06-29 06:59] LABS: Basophils % (manual) 0 (0.0-2.0); Blast Cells 0; Eosinophils % (manual) 0 (0-7); Metamyelocytes % 0; Myelocytes % 0; Promyelocytes % 0; Reactive Lymphocytes 0
[2021-06-29] MEDS ORDERED: SODIUM ZIRCONIUM CYCL 10 GM PAK PO ONE (09:00)
[2021-06-29] MEDS ORDERED: CALCIUM GLUC 1,000mg/50ml-NS 50 ML IV ONE (09:00)
[2021-06-29] MEDS ORDERED: DEXTROSE (25%) 10 ML SYRG IV ONE (09:00)
[2021-06-29] MEDS ORDERED: InsuLIN REG 1unit/0.01ml Soln (100units/ml) IV ONE (09:00)
[2021-06-29] MEDS: PANTOPRAZOLE 40 MG/10 ML VIAL INJ IV SCH (09:01)
[2021-06-29] MEDS: FUROSEMIDE 40 MG/4 ML VIAL IV SCH (09:01)
[2021-06-29] MEDS: MEROPENEM 1GM IVPB 100 ML IV SCH ×2 (09:01→21:15)
[2021-06-29] MEDS: DexAMETHasone SOD PHOS 10MG/1ML VIAL INJ IV SCH (09:01)
[2021-06-29] MEDS: CHOLECALCIFEROL (VITD3) 2,000 UNIT CAP/TAB PO SCH (09:02)
[2021-06-29] MEDS: INSULIN LANTUS (GLARGINE) 1 /0.01ml (100units/ml) SC SCH ×2 (09:06→21:17)
[2021-06-29] MEDS ORDERED: DEXTROSE (50%) 50ML SYRG IV ONE (09:45)
[2021-06-29] MEDS ORDERED: ASCORBIC ACID 1,000 MG TAB PO SCH (10:00)
[2021-06-29 10:57] LABS: Band Neutrophils % (manual) 2; Lymphocytes % (manual) 17 (10.0-50.0); Monocytes % (manual) 14 (0-12)
[2021-06-29] MEDS: fentaNYL Drip 2500mCg/250mlNS 250 ML IV SCH (12:40)
[2021-06-29] MEDS: SODIUM ZIRCONIUM CYCL 10 GM PAK PO SCH ×2 (14:20→21:16)
[2021-06-29] MEDS: ATORVASTATIN 20 MG TAB PO SCH (21:15)
[2021-06-30] VITALS (100 sets, daily range): BP systolic 108–153; BP diastolic 19–38
[2021-06-30] MEDS: SODIUM ZIRCONIUM CYCL 10 GM PAK PO SCH ×3 (05:16→22:17)
[2021-06-30] MEDS: InsuLIN REG 1unit/0.01ml Soln (100units/ml) SC SCH ×4 (06:00→18:00)
[2021-06-30] MEDS: ACCU-CHEK COMFORT CURVE STRIP VI SCH ×4 (06:14→18:00)
[2021-06-30] MEDS: DEXTROSE (50%) 50ML SYRG IV PRN ×2 (06:15→12:46)
[2021-06-30] MEDS: NOREPINEPHRINE 8 MG/250ML KIT 250 ML IV SCH (06:31)
[2021-06-30] MEDS: MIDAZOLAM DRIP 50 mg/50mL 50 ML IV SCH ×3 (07:56→17:00)
[2021-06-30] MEDS: DexAMETHasone SOD PHOS 10MG/1ML VIAL INJ IV SCH (09:44)
[2021-06-30] MEDS: PANTOPRAZOLE 40 MG/10 ML VIAL INJ IV SCH (09:45)
[2021-06-30] MEDS: FUROSEMIDE 40 MG/4 ML VIAL IV SCH (09:45)
[2021-06-30] MEDS: MEROPENEM 1GM IVPB 100 ML IV SCH ×2 (09:45→22:17)
[2021-06-30] MEDS: CHOLECALCIFEROL (VITD3) 2,000 UNIT CAP/TAB PO SCH (09:45)
[2021-06-30] MEDS: INSULIN LANTUS (GLARGINE) 1 /0.01ml (100units/ml) SC SCH (09:49)
[2021-06-30 10:09] LABS: Hemoglobin 8.5 g/dL (12.2-16.2)
[2021-06-30 10:10] LABS: Hematocrit 25.9 % (36.0-46.0); Mean Corpuscular Hemoglobin 29.3 pg (28.0-32.0); Red Blood Cells 2.91 10^6/uL (4.0-5.20); Red Cell Distribution Width 15.4 % (11.8-14.3)
[2021-06-30 10:21] LABS: Calcium 7.8 mg/dL (8.5-10.1); Potassium 4.1 mmol/L (3.5-5.1)
[2021-06-30 10:24] LABS: BUN/Creatinine Ratio 80.2
[2021-06-30 10:40] LABS: Basophils % (manual) 0 (0.0-2.0); Blast Cells 0; Eosinophils % (manual) 0 (0-7); Metamyelocytes % 0; Myelocytes % 0; Promyelocytes % 0; Reactive Lymphocytes 0
[2021-06-30] MEDS ORDERED: METOCLOPRAMIDE HCL 5MG/ml INJ 2ml VIAL IV ONE (11:00)
[2021-06-30 11:33] LABS: Band Neutrophils % (manual) 3; Lymphocytes % (manual) 11 (10.0-50.0); Monocytes % (manual) 9 (0-12)
[2021-06-30] MEDS: fentaNYL Drip 2500mCg/250mlNS 250 ML IV SCH (11:57)
[2021-06-30] MEDS: PROPOFOL 100 ML IV SCH ×2 (11:58→18:48)
[2021-06-30] MEDS ORDERED: FLUCONAZOLE 200MG/100ML 100 ML IV ONE (16:30)
[2021-06-30] MEDS: IVERMECTIN 3 MG TAB PO SCH (17:07)
[2021-06-30] MEDS: METOCLOPRAMIDE HCL 5MG/ml INJ 2ml VIAL IV SCH (18:50)
[2021-06-30] MEDS: ATORVASTATIN 20 MG TAB PO SCH (22:17)
[2021-07-01] VITALS (99 sets, daily range): BP systolic 100–162; BP diastolic 22–51
[2021-07-01] MEDS: METOCLOPRAMIDE HCL 5MG/ml INJ 2ml VIAL IV SCH ×3 (00:01→18:33)
[2021-07-01] MEDS: ACCU-CHEK COMFORT CURVE STRIP VI SCH ×4 (00:01→18:00)
[2021-07-01] MEDS: SODIUM ZIRCONIUM CYCL 10 GM PAK PO SCH (05:02)
[2021-07-01] MEDS: NOREPINEPHRINE 8 MG/250ML KIT 250 ML IV SCH (05:03)
[2021-07-01 05:29] LABS: Hemoglobin 8.7 g/dL (12.2-16.2)
[2021-07-01 05:32] LABS: Hematocrit 26.2 % (36.0-46.0); Mean Corpuscular Hemoglobin 29.1 pg (28.0-32.0); Mean Corpuscular Hgb Conc. 33.2 g/dL (32.0-36.0); Mean Corpuscular Volume 87.8 fL (80.0-100.0); Red Blood Cells 2.98 10^6/uL (4.0-5.20); Red Cell Distribution Width 15.7 % (11.8-14.3); White Blood Cell 9.7 10^3/uL (4.4-10.8)
[2021-07-01] MEDS: InsuLIN REG 1unit/0.01ml Soln (100units/ml) SC SCH ×4 (05:39→18:32)
[2021-07-01 05:49] LABS: Calcium 7.7 mg/dL (8.5-10.1); Potassium 3.6 mmol/L (3.5-5.1)
[2021-07-01 05:58] LABS: Basophils % (manual) 0 (0.0-2.0); Blast Cells 0; Eosinophils % (manual) 0 (0-7); Metamyelocytes % 0; Promyelocytes % 0; Reactive Lymphocytes 0
[2021-07-01 06:55] LABS: Band Neutrophils % (manual) 13; Lymphocytes % (manual) 6 (10.0-50.0); Monocytes % (manual) 5 (0-12); Myelocytes % 3
[2021-07-01] MEDS ORDERED: [UNRECOGNIZED DRUG - CODE] SC (09:08)
[2021-07-01] MEDS: IVERMECTIN 3 MG TAB PO SCH (10:03)
[2021-07-01] MEDS: FLUCONAZOLE 200MG/100ML 100 ML IV SCH (10:03)
[2021-07-01] MEDS: DexAMETHasone SOD PHOS 10MG/1ML VIAL INJ IV SCH (10:03)
[2021-07-01] MEDS: FUROSEMIDE 20 MG/2 ML VIAL IV SCH (10:03)
[2021-07-01] MEDS: CHOLECALCIFEROL (VITD3) 2,000 UNIT CAP/TAB PO SCH (10:03)
[2021-07-01] MEDS: PANTOPRAZOLE 40 MG/10 ML VIAL INJ IV SCH (10:03)
[2021-07-01] MEDS: MEROPENEM 1GM IVPB 100 ML IV SCH ×2 (10:03→23:18)
[2021-07-01] MEDS: FONDAPARINUX SOD 2.5mg/0.5ml SYRINGE SC SCH (11:34)
[2021-07-01] MEDS: fentaNYL Drip 2500mCg/250mlNS 250 ML IV SCH (12:30)
[2021-07-01] MEDS: MIDAZOLAM DRIP 50 mg/50mL 50 ML IV SCH ×2 (17:15→23:06)
[2021-07-01] MEDS: PROPOFOL 100 ML IV SCH (20:55)
[2021-07-01] MEDS: ATORVASTATIN 20 MG TAB PO SCH (23:19)
[2021-07-02] VITALS (104 sets, daily range): BP systolic 102–144; BP diastolic 24–60
[2021-07-02] MEDS: ACCU-CHEK COMFORT CURVE STRIP VI SCH ×4 (00:57→17:26)
[2021-07-02] MEDS: InsuLIN REG 1unit/0.01ml Soln (100units/ml) SC SCH ×4 (00:58→17:26)
[2021-07-02] MEDS: MIDAZOLAM DRIP 50 mg/50mL 50 ML IV SCH ×2 (02:11→07:35)
[2021-07-02] MEDS: fentaNYL Drip 2500mCg/250mlNS 250 ML IV SCH (03:36)
[2021-07-02] MEDS: METOCLOPRAMIDE HCL 5MG/ml INJ 2ml VIAL IV SCH ×3 (04:20→19:09)
[2021-07-02] MEDS: PROPOFOL 100 ML IV SCH (04:21)
[2021-07-02 05:24] LABS: Mean Corpuscular Hgb Conc. 33.2 g/dL (32.0-36.0); Red Blood Cells 1.93 10^6/uL (4.0-5.20); White Blood Cell 5.7 10^3/uL (4.4-10.8)
[2021-07-02 05:27] LABS: Hematocrit 17.2 % (36.0-46.0); Mean Corpuscular Hemoglobin 29.6 pg (28.0-32.0); Mean Corpuscular Volume 89.1 fL (80.0-100.0); Red Cell Distribution Width 15.2 % (11.8-14.3)
[2021-07-02 05:39] LABS: Potassium 4.7 mmol/L (3.5-5.1)
[2021-07-02 05:42] LABS: BUN/Creatinine Ratio 96.7
[2021-07-02 05:55] LABS: Calcium 5.9 mg/dL (8.5-10.1)
[2021-07-02 06:13] LABS: Hemoglobin 5.7 g/dL (12.2-16.2)
[2021-07-02 06:16] LABS: Basophils % (manual) 0 (0.0-2.0); Blast Cells 0; Eosinophils % (manual) 0 (0-7); Myelocytes % 0; Promyelocytes % 0; Reactive Lymphocytes 0
[2021-07-02] MEDS: NOREPINEPHRINE 8 MG/250ML KIT 250 ML IV SCH (06:45)
[2021-07-02] MEDS ORDERED: CALCIUM GLUC 1,000mg/50ml-NS 50 ML IV ONE ×2 (07:30→08:00)
[2021-07-02 08:59] LABS: Hemoglobin 8.5 g/dL (12.2-16.2); Red Cell Distribution Width 15.4 % (11.8-14.3)
[2021-07-02 09:01] LABS: Mean Corpuscular Hgb Conc. 32.6 g/dL (32.0-36.0); Mean Corpuscular Volume 88.8 fL (80.0-100.0); Red Blood Cells 2.93 10^6/uL (4.0-5.20); White Blood Cell 8.6 10^3/uL (4.4-10.8)
[2021-07-02 09:08] LABS: Basophils % (manual) 0 (0.0-2.0); Blast Cells 0; Eosinophils % (manual) 0 (0-7); Metamyelocytes % 0; Myelocytes % 0; Promyelocytes % 0; Reactive Lymphocytes 0
[2021-07-02 09:36] LABS: Band Neutrophils % (manual) 7; Lymphocytes % (manual) 6 (10.0-50.0); Metamyelocytes % 3; Monocytes % (manual) 7 (0-12)
[2021-07-02] MEDS: DexAMETHasone SOD PHOS 10MG/1ML VIAL INJ IV SCH (10:14)
[2021-07-02] MEDS: FUROSEMIDE 20 MG/2 ML VIAL IV SCH (10:15)
[2021-07-02] MEDS: PANTOPRAZOLE 40 MG/10 ML VIAL INJ IV SCH (10:15)
[2021-07-02] MEDS: MEROPENEM 1GM IVPB 100 ML IV SCH ×2 (10:15→22:00)
[2021-07-02] MEDS: FLUCONAZOLE 200MG/100ML 100 ML IV SCH (10:15)
[2021-07-02] MEDS: IVERMECTIN 3 MG TAB PO SCH (10:15)
[2021-07-02] MEDS: CHOLECALCIFEROL (VITD3) 2,000 UNIT CAP/TAB PO SCH (10:15)
[2021-07-02] MEDS: FONDAPARINUX SOD 2.5mg/0.5ml SYRINGE SC SCH (10:15)
[2021-07-02 10:26] LABS: Band Neutrophils % (manual) 5; Lymphocytes % (manual) 4 (10.0-50.0); Monocytes % (manual) 10 (0-12)
[2021-07-02] MEDS: FUROSEMIDE 40 MG/4 ML VIAL IV SCH (19:17)
[2021-07-02] MEDS: ATORVASTATIN 20 MG TAB PO SCH (22:00)
[2021-07-03] VITALS (104 sets, daily range): BP systolic 47–157; BP diastolic 10–51
[2021-07-03] MEDS: METOCLOPRAMIDE HCL 5MG/ml INJ 2ml VIAL IV SCH ×3 (03:00→19:00)
[2021-07-03 05:22] LABS: Mean Corpuscular Volume 88.9 fL (80.0-100.0)
[2021-07-03 05:26] LABS: Hematocrit 26.2 % (36.0-46.0); Hemoglobin 8.6 g/dL (12.2-16.2); Mean Corpuscular Hemoglobin 29.3 pg (28.0-32.0); Mean Corpuscular Hgb Conc. 32.9 g/dL (32.0-36.0); Red Blood Cells 2.94 10^6/uL (4.0-5.20); Red Cell Distribution Width 15.2 % (11.8-14.3); White Blood Cell 10.6 10^3/uL (4.4-10.8)
[2021-07-03 05:34] LABS: Basophils % (manual) 0 (0.0-2.0); Blast Cells 0; Eosinophils % (manual) 0 (0-7); Myelocytes % 0; Promyelocytes % 0; Reactive Lymphocytes 0
[2021-07-03 05:42] LABS: Magnesium 2.6 mg/dL (1.6-2.6); Potassium 4.2 mmol/L (3.5-5.1)
[2021-07-03 05:45] LABS: BUN/Creatinine Ratio 73.3; Calcium 7.8 mg/dL (8.5-10.1)
[2021-07-03] MEDS: InsuLIN REG 1unit/0.01ml Soln (100units/ml) SC SCH ×4 (06:00→18:00)
[2021-07-03] MEDS: ACCU-CHEK COMFORT CURVE STRIP VI SCH ×4 (06:00→18:00)
[2021-07-03] MEDS: FUROSEMIDE 40 MG/4 ML VIAL IV SCH ×2 (06:00→18:00)
[2021-07-03] MEDS ORDERED: FUROSEMIDE 20 MG/2 ML VIAL ONE (06:39)
[2021-07-03] MEDS: PROPOFOL 100 ML IV SCH (07:45)
[2021-07-03 08:32] LABS: Band Neutrophils % (manual) 4; Lymphocytes % (manual) 3 (10.0-50.0); Metamyelocytes % 3; Monocytes % (manual) 7 (0-12)
[2021-07-03] MEDS: FLUCONAZOLE 200MG/100ML 100 ML IV SCH ×2 (09:52→14:05)
[2021-07-03] MEDS: DexAMETHasone SOD PHOS 10MG/1ML VIAL INJ IV SCH (09:52)
[2021-07-03] MEDS: PANTOPRAZOLE 40 MG/10 ML VIAL INJ IV SCH (09:52)
[2021-07-03] MEDS: CHOLECALCIFEROL (VITD3) 2,000 UNIT CAP/TAB PO SCH (09:53)
[2021-07-03] MEDS: IVERMECTIN 3 MG TAB PO SCH (09:53)
[2021-07-03] MEDS: FONDAPARINUX SOD 2.5mg/0.5ml SYRINGE SC SCH (10:03)
[2021-07-03] MEDS: MEROPENEM 1GM IVPB 100 ML IV SCH ×2 (10:05→22:00)
[2021-07-03] MEDS: fentaNYL Drip 2500mCg/250mlNS 250 ML IV SCH (18:20)
[2021-07-03] MEDS: MIDAZOLAM DRIP 50 mg/50mL 50 ML IV SCH (19:30)
[2021-07-03] MEDS: NOREPINEPHRINE 8 MG/250ML KIT 250 ML IV SCH (21:23)
[2021-07-03] MEDS: ATORVASTATIN 20 MG TAB PO SCH (22:00)
[2021-07-04] VITALS (105 sets, daily range): BP systolic 79–151; BP diastolic 12–177
[2021-07-04] MEDS: METOCLOPRAMIDE HCL 5MG/ml INJ 2ml VIAL IV SCH ×3 (03:00→18:36)
[2021-07-04 05:37] LABS: Hematocrit 28.4 % (36.0-46.0); Hemoglobin 8.8 g/dL (12.2-16.2); Mean Corpuscular Hemoglobin 28.6 pg (28.0-32.0); Mean Corpuscular Volume 92.5 fL (80.0-100.0); Red Blood Cells 3.07 10^6/uL (4.0-5.20); White Blood Cell 23.1 10^3/uL (4.4-10.8)
[2021-07-04 05:47] LABS: Calcium 7.4 mg/dL (8.5-10.1); Potassium 5.5 mmol/L (3.5-5.1)
[2021-07-04 05:55] LABS: Basophils % (manual) 0 (0.0-2.0); Blast Cells 0; Eosinophils % (manual) 0 (0-7); Promyelocytes % 0; Reactive Lymphocytes 0
[2021-07-04] MEDS: NOREPINEPHRINE 8 MG/250ML KIT 250 ML IV SCH ×3 (05:59→15:05)
[2021-07-04] MEDS: InsuLIN REG 1unit/0.01ml Soln (100units/ml) SC SCH ×4 (06:00→18:35)
[2021-07-04] MEDS: ACCU-CHEK COMFORT CURVE STRIP VI SCH ×4 (06:00→17:35)
[2021-07-04] MEDS: PROPOFOL 100 ML IV SCH (06:01)
[2021-07-04] MEDS: MIDAZOLAM DRIP 50 mg/50mL 50 ML IV SCH ×2 (06:02→15:04)
[2021-07-04 07:59] LABS: Band Neutrophils % (manual) 13; Lymphocytes % (manual) 3 (10.0-50.0); Metamyelocytes % 1; Monocytes % (manual) 11 (0-12); Myelocytes % 2
[2021-07-04] MEDS: FLUCONAZOLE 200MG/100ML 100 ML IV SCH (09:14)
[2021-07-04] MEDS: DexAMETHasone SOD PHOS 10MG/1ML VIAL INJ IV SCH (09:34)
[2021-07-04] MEDS: PANTOPRAZOLE 40 MG/10 ML VIAL INJ IV SCH (09:34)
[2021-07-04] MEDS: CHOLECALCIFEROL (VITD3) 2,000 UNIT CAP/TAB PO SCH (09:55)
[2021-07-04] MEDS: IVERMECTIN 3 MG TAB PO SCH (09:55)
[2021-07-04] MEDS: MEROPENEM 1GM IVPB 100 ML IV SCH (10:52)
[2021-07-04] MEDS: FUROSEMIDE 20 MG/2 ML VIAL IV SCH ×2 (10:54→17:34)
[2021-07-04] MEDS: PHENYLEPHRINE IV 250 ML IV SCH ×2 (11:00→18:36)
[2021-07-04] MEDS: FONDAPARINUX SOD 2.5mg/0.5ml SYRINGE SC SCH (11:59)
[2021-07-04] MEDS: SODIUM ZIRCONIUM CYCL 10 GM PAK PO SCH (14:04)
[2021-07-04] MEDS: fentaNYL Drip 2500mCg/250mlNS 250 ML IV SCH (14:06)
[2021-07-05] VITALS (98 sets, daily range): BP systolic 116–155; BP diastolic 15–66
[2021-07-05] MEDS: MEROPENEM 1GM IVPB 100 ML IV SCH ×3 (00:22→22:24)
[2021-07-05] MEDS: SODIUM ZIRCONIUM CYCL 10 GM PAK PO SCH ×2 (00:23→06:00)
[2021-07-05] MEDS: METOCLOPRAMIDE HCL 5MG/ml INJ 2ml VIAL IV SCH ×2 (03:00→09:39)
[2021-07-05] MEDS: PHENYLEPHRINE IV 250 ML IV SCH ×4 (03:30→20:24)
[2021-07-05] MEDS: ACCU-CHEK COMFORT CURVE STRIP VI SCH ×5 (06:00→23:23)
[2021-07-05] MEDS: InsuLIN REG 1unit/0.01ml Soln (100units/ml) SC SCH ×5 (06:00→23:18)
[2021-07-05] MEDS: FUROSEMIDE 20 MG/2 ML VIAL IV SCH (06:00)
[2021-07-05 07:18] LABS: Potassium 4.7 mmol/L (3.5-5.1)
[2021-07-05 07:19] LABS: Hemoglobin 8.1 g/dL (12.2-16.2); Mean Corpuscular Hemoglobin 29.6 pg (28.0-32.0); Mean Corpuscular Hgb Conc. 32.4 g/dL (32.0-36.0); Mean Corpuscular Volume 91.2 fL (80.0-100.0); Red Blood Cells 2.74 10^6/uL (4.0-5.20); Red Cell Distribution Width 15.7 % (11.8-14.3); White Blood Cell 18.3 10^3/uL (4.4-10.8)
[2021-07-05 07:26] LABS: Basophils % (manual) 0 (0.0-2.0); Blast Cells 0; Eosinophils % (manual) 0 (0-7); Metamyelocytes % 0; Myelocytes % 0; Promyelocytes % 0; Reactive Lymphocytes 0
[2021-07-05 07:28] LABS: Albumin 1.8 g/dL (3.4-5.0); BUN/Creatinine Ratio 67.5; Bilirubin, Total 0.3 mg/dL (0.2-1.0); Calcium 7.4 mg/dL (8.5-10.1); Total Protein 4.4 g/dL (6.4-8.2)
[2021-07-05] MEDS: NOREPINEPHRINE 8 MG/250ML KIT 250 ML IV SCH ×2 (07:57→15:50)
[2021-07-05] MEDS: PROPOFOL 100 ML IV SCH ×3 (08:35→19:21)
[2021-07-05] MEDS: MIDAZOLAM DRIP 50 mg/50mL 50 ML IV SCH ×2 (08:36→22:24)
[2021-07-05 09:32] LABS: Band Neutrophils % (manual) 1; Lymphocytes % (manual) 3 (10.0-50.0); Monocytes % (manual) 11 (0-12)
[2021-07-05] MEDS: DexAMETHasone SOD PHOS 4 MG/1ML SDV INJ IV SCH (09:39)
[2021-07-05] MEDS: PANTOPRAZOLE 40 MG/10 ML VIAL INJ IV SCH (09:39)
[2021-07-05] MEDS: IVERMECTIN 3 MG TAB PO SCH (09:40)
[2021-07-05] MEDS: FLUCONAZOLE 200MG/100ML 100 ML IV SCH (09:40)
[2021-07-05] MEDS: CHOLECALCIFEROL (VITD3) 2,000 UNIT CAP/TAB PO SCH (09:40)
[2021-07-05] MEDS: FONDAPARINUX SOD 2.5mg/0.5ml SYRINGE SC SCH (11:00)
[2021-07-05] MEDS ORDERED: METOCLOPRAMIDE HCL 5MG/ml INJ 2ml VIAL IV PRN (11:00)
[2021-07-05] MEDS: fentaNYL Drip 2500mCg/250mlNS 250 ML IV SCH (13:25)
[2021-07-05] MEDS ORDERED: ASCORBIC ACID 500 MG TAB PO ONE (20:15)
[2021-07-05] MEDS ORDERED: ZINC SULFATE 220mg CAP or TAB PO ONE (20:15)
[2021-07-06] VITALS (91 sets, daily range): BP systolic 109–178; BP diastolic 18–74
[2021-07-06] MEDS: ACCU-CHEK COMFORT CURVE STRIP VI SCH ×3 (05:45→17:52)
[2021-07-06] MEDS: InsuLIN REG 1unit/0.01ml Soln (100units/ml) SC SCH ×3 (05:45→17:53)
[2021-07-06 07:23] LABS: Hematocrit 23.3 % (36.0-46.0); Hemoglobin 7.4 g/dL (12.2-16.2); Mean Corpuscular Hemoglobin 28.1 pg (28.0-32.0); Mean Corpuscular Hgb Conc. 31.9 g/dL (32.0-36.0); Mean Corpuscular Volume 88.2 fL (80.0-100.0); Red Blood Cells 2.64 10^6/uL (4.0-5.20); Red Cell Distribution Width 15.7 % (11.8-14.3); White Blood Cell 16.3 10^3/uL (4.4-10.8)
[2021-07-06 07:25] LABS: BUN/Creatinine Ratio 85.2; Calcium 7.1 mg/dL (8.5-10.1); Potassium 4.7 mmol/L (3.5-5.1)
[2021-07-06 07:26] LABS: Basophils % (manual) 0 (0.0-2.0); Blast Cells 0; Eosinophils % (manual) 0 (0-7); Metamyelocytes % 0; Promyelocytes % 0; Reactive Lymphocytes 0
[2021-07-06 07:47] LABS: Band Neutrophils % (manual) 3; Lymphocytes % (manual) 8 (10.0-50.0); Monocytes % (manual) 5 (0-12); Myelocytes % 2
[2021-07-06] MEDS: FLUCONAZOLE 200MG/100ML 100 ML IV SCH (08:29)
[2021-07-06] MEDS ORDERED: FUROSEMIDE 20 MG/2 ML VIAL IV SCH (10:00)
[2021-07-06] MEDS: PANTOPRAZOLE 40 MG/10 ML VIAL INJ IV SCH (10:18)
[2021-07-06] MEDS: DexAMETHasone SOD PHOS 4 MG/1ML SDV INJ IV SCH (10:18)
[2021-07-06] MEDS: MEROPENEM 1GM IVPB 100 ML IV SCH (10:18)
[2021-07-06] MEDS: IVERMECTIN 3 MG TAB PO SCH (10:19)
[2021-07-06] MEDS: FONDAPARINUX SOD 2.5mg/0.5ml SYRINGE SC SCH (10:19)
[2021-07-06] MEDS: CHOLECALCIFEROL (VITD3) 2,000 UNIT CAP/TAB PO SCH (10:19)
[2021-07-06] MEDS: PHENYLEPHRINE IV 250 ML IV SCH ×3 (12:50→19:20)
[2021-07-06] MEDS: fentaNYL Drip 2500mCg/250mlNS 250 ML IV SCH (13:05)
[2021-07-06] MEDS: ZINC SULFATE 220mg CAP or TAB PO SCH (20:42)
[2021-07-06] MEDS: ASCORBIC ACID 500 MG TAB PO SCH (20:42)
[2021-07-06] MEDS: NOREPINEPHRINE 8 MG/250ML KIT 250 ML IV SCH (20:44)
[2021-07-07] VITALS (104 sets, daily range): BP systolic 97–160; BP diastolic 13–49
[2021-07-07] MEDS: ACCU-CHEK COMFORT CURVE STRIP VI SCH ×4 (00:26→17:24)
[2021-07-07 05:16] LABS: Hematocrit 21.4 % (36.0-46.0); Mean Corpuscular Hemoglobin 28.9 pg (28.0-32.0); Mean Corpuscular Hgb Conc. 32.7 g/dL (32.0-36.0); Mean Corpuscular Volume 88.4 fL (80.0-100.0); Red Blood Cells 2.42 10^6/uL (4.0-5.20); Red Cell Distribution Width 15.4 % (11.8-14.3); White Blood Cell 11.1 10^3/uL (4.4-10.8)
[2021-07-07] MEDS: InsuLIN REG 1unit/0.01ml Soln (100units/ml) SC SCH ×4 (05:29→18:00)
[2021-07-07 05:39] LABS: Basophils % (manual) 0 (0.0-2.0); Blast Cells 0; Eosinophils % (manual) 0 (0-7); Promyelocytes % 0; Reactive Lymphocytes 0
[2021-07-07 05:40] LABS: Anion Gap 9 (5-15); Blood Urea Nitrogen 62 mg/dL (7-18); Calcium 7.4 mg/dL (8.5-10.1); Carbon Dioxide 28 mmol/L (21-32); Chloride 112 mmol/L (98-107); Glucose 96 mg/dL (74-106); Potassium 4.8 mmol/L (3.5-5.1); Sodium 149 mmol/L (136-145)
[2021-07-07 05:43] LABS: BUN/Creatinine Ratio 95.4; GFR African American 112 mL/min; GFR Non-African American 92 mL/min
[2021-07-07] MEDS: PROPOFOL 100 ML IV SCH ×2 (07:35→14:46)
[2021-07-07 08:07] LABS: Band Neutrophils % (manual) 6; Lymphocytes % (manual) 6 (10.0-50.0); Metamyelocytes % 3; Monocytes % (manual) 3 (0-12); Myelocytes % 1
[2021-07-07] MEDS: FLUCONAZOLE 200MG/100ML 100 ML IV SCH (09:22)
[2021-07-07] MEDS: PANTOPRAZOLE 40 MG/10 ML VIAL INJ IV SCH (09:23)
[2021-07-07] MEDS: CHOLECALCIFEROL (VITD3) 2,000 UNIT CAP/TAB PO SCH (09:33)
[2021-07-07] MEDS: FONDAPARINUX SOD 2.5mg/0.5ml SYRINGE SC SCH (11:33)
[2021-07-07] MEDS ORDERED: D5W 5% 1,000 ML IV ONE (11:45)
[2021-07-07] MEDS: fentaNYL Drip 2500mCg/250mlNS 250 ML IV SCH (12:26)
[2021-07-07] MEDS: PHENYLEPHRINE IV 250 ML IV SCH ×2 (13:50→22:10)
[2021-07-07] MEDS: MIDAZOLAM DRIP 50 mg/50mL 50 ML IV SCH (17:15)
[2021-07-07] MEDS: NOREPINEPHRINE 8 MG/250ML KIT 250 ML IV SCH (17:27)
[2021-07-07] MEDS: ASCORBIC ACID 500 MG TAB PO SCH (21:01)
[2021-07-07] MEDS: ZINC SULFATE 220mg CAP or TAB PO SCH (21:01)
[2021-07-08] VITALS (102 sets, daily range): BP systolic 90–130; BP diastolic 12–26
[2021-07-08] MEDS: ACCU-CHEK COMFORT CURVE STRIP VI SCH ×4 (00:36→23:47)
[2021-07-08] MEDS: InsuLIN REG 1unit/0.01ml Soln (100units/ml) SC SCH ×4 (00:36→23:47)
[2021-07-08] MEDS: PROPOFOL 100 ML IV SCH ×3 (04:09→23:07)
[2021-07-08] MEDS: fentaNYL Drip 2500mCg/250mlNS 250 ML IV SCH ×2 (04:52→21:47)
[2021-07-08] MEDS: PHENYLEPHRINE IV 250 ML IV SCH ×3 (06:30→23:10)
[2021-07-08] MEDS: NOREPINEPHRINE 8 MG/250ML KIT 250 ML IV SCH ×2 (06:56→21:47)
[2021-07-08] MEDS: CHOLECALCIFEROL (VITD3) 2,000 UNIT CAP/TAB PO SCH (10:00)
[2021-07-08] MEDS: PANTOPRAZOLE 40 MG/10 ML VIAL INJ IV SCH (10:00)
[2021-07-08] MEDS: FONDAPARINUX SOD 2.5mg/0.5ml SYRINGE SC SCH (10:00)
[2021-07-08] MEDS: FLUCONAZOLE 200MG/100ML 100 ML IV SCH (10:00)
[2021-07-08 10:41] LABS: Hemoglobin 7.1 g/dL (12.2-16.2); Mean Corpuscular Volume 92.1 fL (80.0-100.0)
[2021-07-08 10:43] LABS: Hematocrit 22.1 % (36.0-46.0); Mean Corpuscular Hemoglobin 29.8 pg (28.0-32.0); Mean Corpuscular Hgb Conc. 32.3 g/dL (32.0-36.0)
[2021-07-08 11:17] LABS: Basophils % (manual) 0 (0.0-2.0); Blast Cells 0; Eosinophils % (manual) 0 (0-7); Promyelocytes % 0; Reactive Lymphocytes 0
[2021-07-08 12:53] LABS: Band Neutrophils % (manual) 11; Lymphocytes % (manual) 5 (10.0-50.0); Metamyelocytes % 1; Monocytes % (manual) 9 (0-12); Myelocytes % 1
[2021-07-08] MEDS: MIDAZOLAM DRIP 50 mg/50mL 50 ML IV SCH (19:25)
[2021-07-08] MEDS ORDERED: FUROSEMIDE 40 MG/4 ML VIAL IV ONE (19:45)
[2021-07-08] MEDS: ZINC SULFATE 220mg CAP or TAB PO SCH (21:54)
[2021-07-08] MEDS: ASCORBIC ACID 500 MG TAB PO SCH (21:54)
[2021-07-09] VITALS (104 sets, daily range): BP systolic 96–141; BP diastolic 12–28
[2021-07-09 05:44] LABS: Albumin 1.4 g/dL (3.4-5.0); Calcium 7.5 mg/dL (8.5-10.1)
[2021-07-09] MEDS: PROPOFOL 100 ML IV SCH (05:44)
[2021-07-09] MEDS: InsuLIN REG 1unit/0.01ml Soln (100units/ml) SC SCH ×2 (05:44→12:00)
[2021-07-09] MEDS: ACCU-CHEK COMFORT CURVE STRIP VI SCH ×2 (05:44→12:00)
[2021-07-09] MEDS: NOREPINEPHRINE 8 MG/250ML KIT 250 ML IV SCH (05:45)
[2021-07-09 05:47] LABS: BUN/Creatinine Ratio 101.7; Bilirubin, Total 0.6 mg/dL (0.2-1.0); Total Protein 4.7 g/dL (6.4-8.2)
[2021-07-09] MEDS: PHENYLEPHRINE IV 250 ML IV SCH ×2 (07:30→15:50)
[2021-07-09] MEDS: FLUCONAZOLE 200MG/100ML 100 ML IV SCH (09:37)
[2021-07-09] MEDS: CHOLECALCIFEROL (VITD3) 2,000 UNIT CAP/TAB PO SCH (09:37)
[2021-07-09] MEDS: PANTOPRAZOLE 40 MG/10 ML VIAL INJ IV SCH (09:37)
[2021-07-09] MEDS: FONDAPARINUX SOD 2.5mg/0.5ml SYRINGE SC SCH (10:00)
[2021-07-09] MEDS: MIDAZOLAM DRIP 50 mg/50mL 50 ML IV SCH (18:20)
[2021-07-10] VITALS (53 sets, daily range): BP systolic 96–145; BP diastolic 16–71
[2021-07-10] MEDS: PHENYLEPHRINE IV 250 ML IV SCH ×2 (00:10→08:30)
[2021-07-10] MEDS: NOREPINEPHRINE 8 MG/250ML KIT 250 ML IV SCH (01:30)
[2021-07-10] MEDS: fentaNYL Drip 2500mCg/250mlNS 250 ML IV SCH (03:17)
[2021-07-10] MEDS: MIDAZOLAM DRIP 50 mg/50mL 50 ML IV SCH ×2 (03:41→09:27)
[2021-07-10] MEDS: PROPOFOL 100 ML IV SCH (06:42)
[2021-07-10] MEDS ORDERED: LORazepam 2MG/ML-1ML VIAL IV PRN (11:00)
[2021-07-10] MEDS ORDERED: LORazepam 2MG/ML-1ML VIAL IV ONE (11:00)
[2021-07-10] MEDS ORDERED: MORPHINE SULFATE INJECTION 2 MG/ML SYRG IV ONE (11:00)
[2021-07-10] MEDS ORDERED: MORPHINE SULFATE INJECTION 2 MG/ML SYRG IV PRN (11:15)
== END 2021-07-10 12:17 | DRG 207 ==
LOC: EDBD 09:11 → ER 09:11 → TELE 13:22 → DOU IN ICU 06-16 16:10
PROVIDERS: ADMIT Nurse Practitioner Acute Care; ATTEND Internal Medicine
PROC: XW033E5 Introduction of Remdesivir Anti-infective into Peripheral Vein, Percutaneous Approach, New Technology Group 5 (ICD-10-PCS; 2021-06-16)
PROC: 05H933Z Insertion of Infusion Device into Right Brachial Vein, Percutaneous Approach (ICD-10-PCS; 2021-06-16)
PROC: B54MZZA Ultrasonography of Right Upper Extremity Veins, Guidance (ICD-10-PCS; 2021-06-16)
PROC: 5A1955Z Respiratory Ventilation, Greater than 96 Consecutive Hours (ICD-10-PCS; principal; 2021-06-17)
PROC: 0BH17EZ Insertion of Endotracheal Airway into Trachea, Via Natural or Artificial Opening (ICD-10-PCS; 2021-06-17)
PROC: 06HM33Z Insertion of Infusion Device into Right Femoral Vein, Percutaneous Approach (ICD-10-PCS; 2021-06-17)
DX: U07.1 COVID-19 (principal); J96.01 Acute respiratory failure with hypoxia; N17.0 Acute kidney failure with tubular necrosis; J12.82 Pneumonia due to coronavirus disease 2019; E43 Unspecified severe protein-calorie malnutrition; I21.A1 Myocardial infarction type 2; J96.02 Acute respiratory failure with hypercapnia; R65.21 Severe sepsis with septic shock; A41.89 Other specified sepsis; E87.0 Hyperosmolality and hypernatremia; Z99.11 Dependence on respirator [ventilator] status; N39.0 Urinary tract infection, site not specified; J93.9 Pneumothorax, unspecified; I82.623 Acute embolism and thrombosis of deep veins of upper extremity, bilateral; D89.839 Cytokine release syndrome, grade unspecified; Z66 Do not resuscitate; E87.5 Hyperkalemia; I12.9 Hypertensive chronic kidney disease with stage 1 through stage 4 chronic kidney disease, or unspecified chronic kidney disease; N18.9 Chronic kidney disease, unspecified; E11.22 Type 2 diabetes mellitus with diabetic chronic kidney disease; E03.9 Hypothyroidism, unspecified; R79.89 Other specified abnormal findings of blood chemistry; D69.59 Other secondary thrombocytopenia; E11.649 Type 2 diabetes mellitus with hypoglycemia without coma; E78.1 Pure hyperglyceridemia; K21.9 Gastro-esophageal reflux disease without esophagitis; E11.65 Type 2 diabetes mellitus with hyperglycemia; T38.0X5A Adverse effect of glucocorticoids and synthetic analogues, initial encounter; Y92.89 Other specified places as the place of occurrence of the external cause; Z51.5 Encounter for palliative care; I25.2 Old myocardial infarction; Z86.718 Personal history of other venous thrombosis and embolism; Z85.118 Personal history of other malignant neoplasm of bronchus and lung; Z68.26 Body mass index [BMI] 26.0-26.9, adult
CPT/HCPCS: 36415; 36569; 36600; 71045; 80048; 80053; 80061; 81001; 82728; 82805; 82962; 83036; 83605; 83615; 83735; 83880; 84132; 84443; 84484; 85007; 85025; 85027; 85379; 85610; 85730; 86141; 86850; 86900; 86901; 86920; 87040; 87070; 87077; 87205; 87426; 87804; 93005; 93306; 93970; 94003; 94640; 96361; 96365; 96367; 96375; 99291; C9113; G0378; J0696; J1100; J1450; J1652; J1815; J2185; J2250; J2704; J7060